=== PATIENT | female | born 1985 | race Caucasian/White ===

== ENCOUNTER 2019-07-13 02:26 | Emergency (ER) | payer BC, OTHER ==
[2019-07-13] MEDS ORDERED: Sodium Chloride 0.9% 1000 ML 1,000 ML IV STA (02:35)
[2019-07-13] MEDS ORDERED: Zofran 4 MG/2 ML VIAL IV ONE (02:35)
[2019-07-13] MEDS ORDERED: BENADRYL 50 MG/ML IV ONE ×2 (02:35→05:27)
[2019-07-13] MEDS ORDERED: SUBLIMAZE 100 MCG/2 ML IV ONE (02:35)
[2019-07-13] MEDS ORDERED: BENADRYL 50 MG/ML ONE ×2 (02:43→05:28)
[2019-07-13] MEDS ORDERED: Zofran 4 MG/2 ML VIAL ONE (02:43)
[2019-07-13] MEDS ORDERED: SUBLIMAZE 100 MCG/2 ML ONE (02:43)
--- NOTE | 2019-07-13 03:00 | ERPHSYRPT ---
- History of Present Illness Time Seen by Provider: 07/13/19 02:40 Source: patient Exam Limitations: no limitations Patient Subjective Stated Complaint: pt states that she was awaken at 0100 with a terrible headache, pt states that she is having "foggy vision", pt states that the pain feels like the blood is rushing in her head and doesnt drain out, pt states that she has had headache/ fullness and lightheaded for the past 4 days, pt states that she took 3 ibuprofen and a xanax prior to coming in Triage Nursing Assessment: pt came in via ambulance, pt is AxO x4, pt is anxious , states 7/10 pain to head, pupils 4mm PERRL, 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 Timing/Duration: hour(s) (1.5) Quality: throbbing Head Pain Location: global (bilateral retroorbital) Severity of Pain-Max: severe Severity of Pain-Current: severe Recent Head Trauma: occasional headaches Modifying Factors: Improves With: medication Associated Symptoms: dizziness, light-headedness, visual disturbance, No confusion, No fatigue, No facial pain, No fever/chills, No flushing, No loss of consciousness, No nausea/vomiting, No nasal congestion, No nasal drainage, No neck pain, No numbness in legs/feet, No rash, No sweating, No scotoma, No seizures, No sinus infection, No sensitive to light, No speech problems, No stiff neck, No trouble walking, No vision changes, No weakness Previous symptoms: different symptoms, no recent treatment Allergies/Adverse Reactions: ciprofloxacin [From Cipro] Allergy (Verified 07/13/19 02:49) metronidazole [From Flagyl] Allergy (Verified 07/13/19 02:49) Home Medications: Alprazolam 0.25 mg [xanAX 0.25 MG] 0.25 mg PO BID 07/13/19 [History] Sulfamethoxazole/Trimethoprim [Bactrim 400-80 mg Tablet] 1 tablet PO BID [History] Hx Tetanus, Diphtheria Vaccination/Date Given: No (unknown) Hx Influenza Vaccination/Date Given: Yes - Review of Systems Constitutional: No Fever, No Chills, No Fatigue Eyes: Vision Changes, No Eye Pain, No Photophobia, No Tearing, No Double Vision Ears, Nose, & Throat: Sinus Drainage, No Nose Congestion, No Throat Pain, No Throat Swelling, No Painful Swallowing Respiratory: No Cough, No Dyspnea Cardiac: No Chest Pain, No Edema, No Syncope Abdominal/Gastrointestinal: No Abdominal Pain, No Nausea, No Vomiting, No Diarrhea Genitourinary Symptoms: No Dysuria Musculoskeletal: No Back Pain, No Neck Pain Skin: No Rash Neurological: Headache, No Dizziness, No Focal Weakness, No Parasthesia, No Sensory Changes, No Speech Changes, No Tremors Psychological: No Emotional Lability Endocrine: No Symptoms Hematologic/Lymphatic: No Easy Bleeding, No Easy Bruising All Other Systems: Reviewed and Negative - Past Medical History Pertinent Past Medical History: Yes Psycho-Social History: Anxiety - Past Surgical History Past Surgical History: Yes Female Surgical History: Tubal Ligation Other Surgical History: ablations - Social History Smoking Status: Never smoker Exposure to second hand smoke: Yes Drug Use: none Patient Lives Alone: No - Female History Hx Now: No - Nursing Vital Signs Nursing Vital Signs: Initial Vital Signs Temperature 98 F 07/13/19 02:28 Pulse Rate 88 07/13/19 02:28 Respiratory Rate 24 07/13/19 02:28 Blood Pressure 122/73 07/13/19 02:28 O2 Sat by Pulse Oximetry 100 07/13/19 02:28 Pain Scale Pain Intensity 9 - Physical Exam General Appearance: no apparent distress Eye Exam: PERRL/EOMI, eyes nml inspection, No scleral icterus, No pale conjunctivae Ears, Nose, Throat Exam: normal ENT inspection, TMs normal, pharynx normal, moist mucous membranes Neck Exam: normal inspection, non-tender, supple, full range of motion, No meningismus, No mass, No Brudzinski, No Kernig's, No JVD, No lymphadenopathy Respiratory Exam: normal breath sounds, lungs clear, airway intact, No diminished breath sounds, No accessory muscle use, No crackles/rales, No wheezing, No stridor Cardiovascular Exam: regular rate/rhythm, normal heart sounds, capillary refill <2 sec Gastrointestinal/Abdominal Exam: soft, No tenderness, No distention Back Exam: normal inspection, normal range of motion, No CVA tenderness, No vertebral tenderness, No rash Extremity Exam: normal inspection, normal range of motion Mental Status Exam: alert, oriented x 3, cooperative filer and sander Exam: normal speech, PERRL, tongue midline, No facial droop, No facial weakness, No gaze palsy, No hearing deficit (R), No hearing deficit (L), No tongue deviation to R, No tongue deviation to L Coordination/Gait Exam: normal finger to nose Motor/Sensory Exam: no motor deficit, no sensory deficit, No sensory deficit, No weak motor strength RUE, No weak motor strength LUE, No weak motor strength RLE, No weak motor strength LLE DTR Exam: ankle (R): 2+, ankle (L): 2+ Skin Exam: normal color, warm, dry, No rash, No petechiae, No jaundice SpO2 Interpretation: normal SpO2: 100 O2 Delivery: Room Air - Course Nursing assessment & vital signs reviewed: Yes - CT Exams Head CT Interpretation: Negative, Tele-radiologist Report, No/Intracranial Hemorrhag , Other (per radiologist interpretation: No acute intracranial hemorrhage or infarct. Cranial gland cyst measuring 11 x 5 x 5 mm. No ventriculomegaly. Visualized sinuses are unremarkable. No fluid levels. Visualized mastoid air cells are well aerated. Soft tissues are unremarkable.) CTA Brain CT Interpretation: Negative, No/Intracranial Hemorrhag, Other (per radiologist' s interpretation:slightly hypoplastic right vertebral artery. No occlusion or significant stenosis with no signs of aneurysm.) Ordered Tests: Active Orders 24 hr Category Date Time Status IV Insertion STAT Care 07/13/19 02:35 Active NPO (ED) STAT Care 07/13/19 04:25 Active CTA HEAD W AND/OR WO CONTRAST [CT] Stat Exams 07/13/19 04:24 Ordered HEAD WITHOUT CONTRAST [CT] Stat Exams 07/13/19 02:36 Taken CBC W DIFF Stat Lab 07/13/19 03:09 Completed CMP Stat Lab 07/13/19 03:09 Completed HCG,QUALITATIVE URINE Stat Lab 07/13/19 Uncollected PROTIME WITH INR Stat Lab 07/13/19 03:09 Completed PTT Stat Lab 07/13/19 03:09 Completed UA W/RFX UR CULTURE Stat Lab 07/13/19 02:37 Uncollected Medication Summary Discontinued Medications Generic Name Dose Route Start Last Admin Trade Name Freq PRN Reason Stop Dose Admin Diphenhydramine HCl 25 mg 07/13/19 02:35 07/13/19 02:46 Benadryl 50 Mg/Ml IV 07/13/19 02:36 25 mg STAT ONE Administration Diphenhydramine HCl Confirm 07/13/19 02:43 Benadryl 50 Mg/Ml Administered 07/13/19 02:44 Dose 50 mg .ROUTE .STK-MED ONE Diphenhydramine HCl 25 mg 07/13/19 05:27 07/13/19 05:29 Benadryl 50 Mg/Ml IV 07/13/19 05:28 25 mg STAT ONE Administration Diphenhydramine HCl Confirm 07/13/19 05:28 Benadryl 50 Mg/Ml Administered 07/13/19 05:29 Dose 50 mg .ROUTE .STK-MED ONE Fentanyl Citrate 50 mcg 07/13/19 02:35 07/13/19 02:45 Sublimaze 100 Mcg/2 Ml IV 07/13/19 02:36 50 mcg STAT ONE Administration Fentanyl Citrate Confirm 07/13/19 02:43 Sublimaze 100 Mcg/2 Ml Administered 07/13/19 02:44 Dose 100 mcg .ROUTE .STK-MED ONE Hydromorphone HCl 1 mg 07/13/19 03:23 07/13/19 03:27 Hydromorphone 1 Mg/Ml Ampule IV 07/13/19 03:24 1 mg STAT ONE Administration Hydromorphone HCl Confirm 07/13/19 03:26 Hydromorphone 1 Mg/Ml Ampule Administered 07/13/19 03:27 Dose 1 mg .ROUTE .STK-MED ONE Hydromorphone HCl 1 mg 07/13/19 04:23 07/13/19 04:31 Hydromorphone 1 Mg/Ml Ampule IV 07/13/19 04:24 1 mg STAT ONE Administration Hydromorphone HCl Confirm 07/13/19 04:24 Hydromorphone 1 Mg/Ml Ampule Administered 07/13/19 04:25 Dose 1 mg .ROUTE .STK-MED ONE Sodium Chloride 1,000 mls @ 999 mls/hr 07/13/19 02:35 07/13/19 04:25 Sodium Chloride 0.9% 1000 Ml IV 07/13/19 03:35 Infused .Q1H1M STA Infusion Sodium Chloride Confirm 07/13/19 03:27 Sodium Chloride 0.9% 1000 Ml Administered 07/13/19 03:28 Dose 1,000 mls @ ud .ROUTE .STK-MED ONE Ondansetron HCl 4 mg 07/13/19 02:35 07/13/19 02:45 Zofran 4 Mg/2 Ml Vial IV 07/13/19 02:36 4 mg STAT ONE Administration Ondansetron HCl Confirm 07/13/19 02:43 Zofran 4 Mg/2 Ml Vial Administered 07/13/19 02:44 Dose 4 mg .ROUTE .STK-MED ONE Lab/Rad Data: Laboratory Result Diagrams 07/13/19 03:09 07/13/19 03:09 Laboratory Results 07/13/19 07/13/19 07/13/19 Range/Units 03:09 03:09 03:09 WBC 6.3 (4.0-10.5) K/mm3 RBC 4.22 (4.1-5.4) M/mm3 Hgb 13.2 (12.0-16.0) gm/dl Hct 37.6 (35-47) % MCV 89.1 (78-100) fl MCH 31.3 (26-32) pg MCHC 35.1 (32-36) g/dl RDW 12.1 (11.5-14.0) % Plt Count 226 (150-450) K/mm3 MPV 9.3 (6-9.5) fl Gran % 62.7 (36.0-66.0) % Eos # (Auto) 0.09 (0-0.5) Absolute Lymphs (auto) 1.84 (1.0-4.6) Absolute Monos (auto) 0.42 (0.0-1.3) Lymphocytes % 29.0 (24.0-44.0) % Monocytes % 6.6 (0.0-12.0) % Eosinophils % 1.4 (0.00-5.0) % Basophils % 0.3 (0.0-0.4) % Absolute Granulocytes 3.97 (1.4-6.9) Basophils # 0.02 (0-0.4) PT 12.5 H (9.95-12.35) SECONDS INR 1.10 (0.8-3.0) APTT 35.9 (25.3-37.0) SECONDS Sodium 139 (137-145) mmol/L Potassium 4.1 (3.5-5.1) mmol/L Chloride 107 (98-107) mmol/L Carbon Dioxide 25 (22-30) mmol/L Anion Gap 11.2 (5-15) MEQ/L BUN 12 (7-17) mg/dL Creatinine 0.69 (0.52-1.04) mg/dL Estimated GFR > 60.0 ML/MIN Glucose 102 (74-106) mg/dL Calcium 8.8 (8.4-10.2) mg/dL Total Bilirubin 0.50 (0.2-1.3) mg/dL AST 24 (14-36) U/L ALT 23 (0-35) U/L Alkaline Phosphatase 58 (38-126) U/L Serum Total Protein 7.0 (6.3-8.2) g/dL Albumin 3.9 (3.5-5.0) g/dL - Progress Progress: re-examined Air Movement: good Progress Note: 07/13/19 03:22 Patient's headache improved after IV medication, then headache returned. Patient will be given 1 mg of Dilaudid 07/13/19 04:23 Patient has a return of her headache behind her eyes. 07/13/19 04:47 Patient feels the best after oxygen administration via mask and IV Dilaudid. Oxygen will be discontinued. 07/13/19 05:28 Patient is itching. No rashes, no urticaria no wheeze no tongue swelling. Benadryl 25mg IV times one will be given 07/13/19 06:03 Patient feels much better, has no further headache, itching. No neurologic deficits, no rashes, no angioedema. 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 The patient was counseled regarding Diagnosis,Lab results, Imaging studies, need for follow up and when to return to the Emergency Room. Return if any new rashes, new fevers , worse headache, neck pain, sore throat, difficulty swallowing, vision changes or any other concerning signs or symptoms that were not present at today's emergency department visit for immediate re-evaluation in the emergency department. Prescriptions given: None Discharge Note I have spoken with the patient. I have explained the patient's condition, diagnosis and treatment plan based on the information available to me at this time. I have answered the patient's and/or caregiver's questions and addressed any concerns. The patient has a good understanding of the patient's diagnosis, condition and treatment plan as can be expected at this point. The vital signs have been stable. The patient's condition is stable and appropriate for discharge from the emergency department. The patient will pursue further outpatient evaluation with the primary care physician or other designated or consulting physician as outlined in the discharge instructions. The patient is agreeable to this plan of care and follow -up instructions have been explained in detail. The patient has received these instructions. The patient is aware that any significant change in condition or worsening of symptoms should prompt an immediate return to this or the closest emergency department or call 911. Forms: Work/School Release Form
[2019-07-13] MEDS ORDERED: Hydromorphone 1 mg/ml Ampule IV ONE ×2 (03:23→04:23)
[2019-07-13] MEDS ORDERED: Hydromorphone 1 mg/ml Ampule ONE ×2 (03:26→04:24)
[2019-07-13] MEDS ORDERED: Sodium Chloride 0.9% 1000 ML 1,000 ML ONE (03:27)
[2019-07-13 03:29] LABS: Absolute Neutrophil Ct (ANC) 3.97 (1.4-6.9); BASOPHIL % 0.3 % (0.0-0.4); Basophil (Absolute #) 0.02 (0-0.4); Eosinophil % 1.4 % (0.00-5.0); Eosinophil (Absolute #) 0.09 (0-0.5); Hematocrit 37.6 % (35-47); Hemoglobin 13.2 gm/dl (12.0-16.0); Lymphocyte (Absolute #) 1.84 (1.0-4.6); Mean Cell Volume 89.1 fl (78-100); Mean Corpuscular Hemoglobin 31.3 pg (26-32); Mean Corpuscular Hgb Concent. 35.1 g/dl (32-36); Mean Platelet Volume 9.3 fl (6-9.5); Monocyte (Absolute #) 0.42 (0.0-1.3); Monocytes % 6.6 % (0.0-12.0); Neutrophil % 62.7 % (36.0-66.0); Platelet Count 226 K/mm3 (150-450); Red Blood Count 4.22 M/mm3 (4.1-5.4); Red Cell Distribution Width 12.1 % (11.5-14.0); White Blood Count 6.3 K/mm3 (4.0-10.5)
[2019-07-13 03:36] LABS: INR 1.1 (0.8-3.0); PROTIME 12.5 SECONDS (9.95-12.35)
[2019-07-13 03:39] LABS: PTT 35.9 SECONDS (25.3-37.0)
[2019-07-13 03:42] LABS: ALBUMIN 3.9 g/dL (3.5-5.0); ALKALINE PHOSPHATASE 58 U/L (38-126); ANION GAP 11.2 MEQ/L (5-15); BLOOD UREA NITROGEN 12 mg/dL (7-17); CHLORIDE 107 mmol/L (98-107); Calcium 8.8 mg/dL (8.4-10.2); Carbon Dioxide 25 mmol/L (22-30); Creatinine 1 0.69 mg/dL (0.52-1.04); Glucose 102 mg/dL (74-106); Potassium 4.1 mmol/L (3.5-5.1); SGOT/AST 24 U/L (14-36); SGPT/ALT 23 U/L (0-35); SODIUM 139 mmol/L (137-145)
[2019-07-13 06:04] VITALS: BP 124/64; PULSE 76
[2019-07-13 06:09] VITALS: O2SAT 100
--- NOTE | 2019-07-13 20:54 | XRAY ---
Exam: CT of the head without IV contrast from 07/13/2019. Comparison: None. Indication: 34-year-old female complains of headache "behind eyes ". Both of her ears feel full and throbbing. Technique: Non-IV contrast axial images were obtained through the brain. Reconstructed coronal and sagittal images were created and reviewed. Findings: The ventricles appear of normal size and configuration. No focal mass effect or midline shift is seen. No acute intracranial bleed or abnormal extra-axial fluid collection is seen. Incidentally, there appears to be an oval-shaped pineal gland cyst measuring about 6 mm in width on coronal image #62 and 11 mm in AP dimension and 5 mm in height on sagittal image #44. This represents an incidental finding. The arellano matter-white matter interfaces appear unremarkable. No low attenuation territorial infarct or focal edema is seen. The cortical sulci and basilar cisterns appear unremarkable. The calvarium of the skull appears intact without evidence of fracture or other focal bone lesion. The visualized paranasal sinuses are essentially clear. No air-fluid levels are seen. The mastoid air cells are clear without evidence of effusion. The globes of each orbit as well as the retro-orbital regions appear unremarkable. The visualized extraocular muscles and optic nerves appear unremarkable. Impression: 1. I see no evidence of acute intracranial bleed or other acute intracranial abnormality. 2. 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
--- NOTE | 2019-07-13 21:25 | XRAY ---
Exam: CTA of the head with IV contrast from 5:09 AM on 07/13/2019. Total DLP: 749.43 mGy-cm. Comparison: CT of the head without IV contrast from 3:40 AM on 07/13/2019. Indication: Exacerbation of headache. Technique: Computed tomography angiography of the head was performed with 80 ML's of Isovue 370 contrast. Axial images were obtained from the subcarinal region to the top of the patient's head. Reconstructed coronal and sagittal images were created and reviewed. Findings: The post-CT examination of the brain reveals no evidence of mass, mass effect, or abnormal extra-axial fluid collection. The intracranial vessels enhance well revealing no gross evidence of aneurysm about the [place] of [place]. The right vertebral artery reveals mildly hypoplastic with respect to the left vertebral artery. The right common carotid artery, extracranial internal carotid artery, and external carotid artery appear unremarkable without evidence of occlusion, dissection, or stenosis. The left common carotid artery, extracranial segment of the left internal carotid artery, and external carotid artery also reveal no evidence of stenosis, occlusion, or dissection. The left vertebral artery appears unremarkable without evidence of stenosis, dissection, or occlusion. The bones reveal no evidence of acute fracture or other significant bone lesion. The extracranial soft tissues of the neck and head reveal no other evidence of mass or soft tissue swelling. No abnormal cervical lymphadenopathy is seen. The thyroid gland appears mildly enlarged in a diffuse manner. Correlate with laboratory data and thyroid ultrasound. See coronal images #26 and #27. I believe there is some mild posterior dependent atelectasis within both upper lung garcia, right greater than left.. In addition, a subpleural 6-7 mm soft tissue nodule is seen within the left upper lobe on axial images #10 through #12. Correlate clinically. I believe there is some persistent thymus tissue within the anterior mediastinal fat. The remaining of the superior mediastinum appears unremarkable. Impression: 1. I see no significant carotid stenosis, vascular occlusion, or dissection within the neck. The intracranial vessels appear grossly unremarkable without evidence of aneurysm about the [place] of [place]. 3. The right vertebral artery is smaller than the left vertebral artery as an incidental note. 3. 6-7 mm subpleural soft tissue nodule within left upper lobe. Consider a follow-up CT of the chest to evaluate whether there are more lung nodules. If there are not more lung nodules, a follow-up CT of the chest would be recommended 6-12 months from now according to Fleischner Society guidelines for low risk or high risk individuals. 4. I believe there is some subsegmental atelectasis at the posterior aspect of both upper lung garcia, right greater than left. 5. The thyroid gland appears mildly enlarged in a diffuse manner. Correlate with laboratory data and thyroid ultrasound.
== END 2019-07-13 08:22 | disposition home or self-care (01) ==
LOC: ED 02:26
DX: R51 Headache (principal); E34.8 Other specified endocrine disorders; R42 Dizziness and giddiness; H53.9 Unspecified visual disturbance
CPT/HCPCS: 36415; 70450; 70496; 80053; 85025; 85610; 85730; 96360; 96374; 96375; 96376; 99284; J1170; J1200; J2405; J3010